=== PATIENT | male | born 1965 | race Caucasian/White ===

== ENCOUNTER 2018-10-29 06:42 | Emergency (ER) | payer BC, OTHER ==
[2018-10-29] MEDS ORDERED: Sodium Chloride 0.9% 1,000 ML IV ONE (06:52)
--- NOTE | 2018-10-29 07:14 | EDM.PDOC ---
ED HPI GENERAL MEDICAL PROBLEM - General Chief Complaint: Neuro Symptoms/Deficits Stated Complaint: STROKE Time Seen by Provider: 10/29/18 07:07 - History of Present Illness INITIAL COMMENTS - FREE TEXT/NARRATIVE: HISTORY AND PHYSICAL: History of present illness: The patient is a 53-year-old male with a history of diabetes who presents via EMS upon awakening this morning and noticing that his speech is altered and that he ate weakness in bilateral legs right greater than left. According to the history the last known well time was about 7 PM last evening but the patient says he just wasn't feeling "right" and felt somewhat ill at about 6 PM. He says he did toss and turn all night and didn't sleep well but he did not get up to go to the bathroom or get out of bed to notice any neurologic changes. Upon awakening this morning he noticed that he was very weak in his legs and his roommate noticed that he had speech issues. From this history his last known well time was 7 PM and the symptoms were noticed this morning at 6 AM. He has no history of neurologic issues and no history of trauma. He denies any complaints of pain such as headache chest pain abdominal pain and has had no shortness of breath nausea vomiting or extremity pain. He has no midline neck or back pain and says that he has been eating and drinking normally yesterday. He has no recent illnesses that he is aware of. The patient noticeably says that he feels like he is having trouble getting his words out. With these events of this morning there was no trauma. Please see below for more information after the was contacted. Review of systems: As per history of present illness and below otherwise all systems reviewed and negative. Past medical history: As per history of present illness and as reviewed below otherwise noncontributory. Surgical history: As per history of present illness and as reviewed below otherwise noncontributory. Social history: No reported history of drug or alcohol abuse. Family history: As per history of present illness and as reviewed below otherwise noncontributory. Physical exam: General: Well-developed well-nourished man who is nontoxic and vital signs are noted by me. He is able to speak and answer questions but he has difficulty forcing words out and articulating. He is cooperative and interactive and on my exam he can't move upper extremities sit himself up in bed and adjust himself and most of his weakness appears to be in his lower extremities right greater than left. HEENT: Atraumatic, normocephalic, pupils reactive, negative for conjunctival pallor or scleral icterus, mucous membranes moist, throat clear, neck supple, nontender, trachea midline. No cervical adenopathy or nuchal rigidity Lungs: Clear to auscultation, breath sounds equal bilaterally, chest nontender. Heart: S1S2, regular rate and rhythm no overt murmurs Abdomen: Soft, nondistended, nontender. Negative for masses or hepatosplenomegaly. Negative for costovertebral tenderness. Pelvis: Stable nontender. Genitourinary: Deferred. Rectal: Deferred. Extremities: Atraumatic, negative for cords or calf pain. Neurovascular unremarkable. No pedal edema or leg asymmetry Neuro: Awake, alert, oriented. Cranial nerves II through XII unremarkable with the exception of a slight facial droop on the right . Hydrogeology Professor strength is equal bilaterally on my exam and the patient can wiggle his toes bilaterally but the left is better than the right. NIHSS was initially 13, evaluation there is definite improvement of the right upper extremity. Bilateral lower extremities exhibit weakness which on the left appears to be a 2-3/5 are as on the right it is more likely 1-2/5. Tone is normal. Patient has speech that is intelligible but there is some thickening and difficulty articulating words and seems to be very forced and slurred. Back: There are no midline step-offs and she backs the thoracic or lumbar spine no posterior rib tenderness Diagnostics: EKG CT scan of the head chest x-ray CBC CMP INR UA UDS troponin TSH hemoglobin A1c Therapeutics: IV O2 monitor IV fluids aspirin This case was called as a stroke alert due to the presenting symptoms and in light of the times relate to us both by the patient and EMS the patient is not a candidate for TPA as his last known well time was 7 PM and the onset of symptoms were noticed at 6 AM upon awakening. His initial stroke scale was 13 and he is already showing some signs of improvement. Due to the patient's age and the deficit involved this patient will be transferred to [facility] in [place] as an acute stroke for more intensive care with neurology and ability for imaging with MRI. Once I obtain all testing results I will plan on this transfer and communicate those facts and information to the patient. Nursing contacted the patient's who was in [place], as he is here working in town. She said that she spoke with him at 9 PM last evening and he was slurring his speech at that time. She also relates to us that he has a history of diabetic neuropathy and has reduced sensation in his extremities which is not new and he also has a bilateral lower extremity weakness which is not new. She says that he is not always compliant with his medications for his diabetes. Patient is aware of testing results and need for transfer and he is somewhat tearful and upset about having to be transferred but understands our position and are lack of resources for him. [id number]: Case was discussed with Dr. Le at [facility] in the ER who accepts the patient for transfer. He agrees with ground transfer as a last known well time was 7 PM. He is aware that at this point the patient's stroke scale and symptoms are not completely unilateral. Impression: Acute neurologic deficits/CVA; history of insulin requiring diabetes Definitive disposition and diagnosis as appropriate pending reevaluation and review of above. - Related Data Allergies Allergy/AdvReac Type Severity Reaction Status Date / Time metformin Allergy Abdominal Verified 10/29/18 07:04 Pain Penicillins Allergy Hives Verified 10/29/18 07:04 Home Meds: Home Meds Insulin Detemir [Levemir] 60 unit SQ QPM 08/27/15 [History] Insulin Lispro [HumaLOG] See Protocol SQ ASDIRECTED PRN 08/27/15 [History] Past Medical History Cardiovascular History: Reports: CAD, High Cholesterol, Hypertension, DE, Stents Musculoskeletal History: Reports: Other (See Below) Other Musculoskeletal History: Dupuytren's contracture or palmar fibromatosis Endocrine/Metabolic History: Reports: Diabetes, Type II - Past Surgical History Cardiovascular Surgical History: Reports: Other (See Below) GI Surgical History: Reports: Other (See Below) Musculoskeletal Surgical History: Reports: Other (See Below) Social & Family History - Family History Family Medical History: Noncontributory Cardiac: Reports: CAD Oncologic: Reports: Colon, Prostate ED ROS GENERAL - Review of Systems Review Of Systems: ROS reveals no pertinent complaints other than HPI. ED EXAM, GENERAL - Physical Exam Exam: See Below (See dictation) Course - Vital Signs Last Recorded V/S: Last Vital Signs Temp 36.1 C 10/29/18 06:54 Pulse 53 L 10/29/18 06:54 Resp 16 10/29/18 06:54 BP 147/93 H 10/29/18 06:54 Pulse Ox 96 10/29/18 06:54 - Orders/Labs/Meds Orders: Active Orders 24 hr Category Date Time Status Cardiac Monitoring [RC] . DIRECTED Care 10/29/18 06:52 Active EKG Documentation Completion [RC] STAT Care 10/29/18 06:52 Active Pulse Oximetry [RC] ASDIRECTED Care 10/29/18 06:52 Active DRUG SCREEN, URINE [URCHEM] Stat Lab 10/29/18 06:53 Ordered GLYCOSYLATED HEMOGLOBIN,HGBA1C [CHEM] Stat Lab 10/29/18 06:45 Received UA RFX FILOMENA AND CULT IF INDIC [URIN] Stat Lab 10/29/18 06:52 Ordered Saline Lock Insert [OM.PC] Stat Oth 10/29/18 06:52 Ordered Labs: Laboratory Tests 10/29/18 10/29/18 10/29/18 Range/Units 06:45 06:45 06:45 WBC 6.71 (4.0-11.0) K/uL RBC 4.68 (4.50-5.90) M/uL Hgb 14.0 (13.0-17.0) g/dL Hct 41.0 (38.0-50.0) % MCV 87.6 (80.0-98.0) fL MCH 29.9 (27.0-32.0) pg MCHC 34.1 (31.0-37.0) g/dL RDW Std Deviation 45.3 (28.0-62.0) fl RDW Coeff of Alexandra 14 (11.0-15.0) % Plt Count 194 (150-400) K/uL MPV 10.30 (7.40-12.00) fL Neut % (Auto) 58.8 (48.0-80.0) % Lymph % (Auto) 30.0 (16.0-40.0) % [place] % (Auto) 7.3 (0.0-15.0) % Eos % (Auto) 3.6 (0.0-7.0) % Baso % (Auto) 0.3 (0.0-1.5) % Neut # (Auto) 4.0 (1.4-5.7) K/uL Lymph # (Auto) 2.0 (0.6-2.4) K/uL [place] # (Auto) 0.5 (0.0-0.8) K/uL Eos # (Auto) 0.2 (0.0-0.7) K/uL Baso # (Auto) 0.0 (0.0-0.1) K/uL Nucleated RBC % 0.0 /100WBC Nucleated RBCs # 0 K/uL INR 0.94 Sodium 137 (136-148) mmol/L Potassium 4.7 (3.5-5.1) mmol/L Chloride 103 (98-107) mmol/L Carbon Dioxide 25.0 (21.0-32.0) mmol/L BUN 17 (7.0-18.0) mg/dL Creatinine 1.1 (0.8-1.3) mg/dL Est Cr Clr Drug Dosing 94.25 mL/min Estimated GFR (MDRD) > 60.0 ml/min Glucose 204 H (74-106) mg/dL Calcium 9.0 (8.5-10.1) mg/dL Total Bilirubin 0.6 (0.2-1.0) mg/dL AST 14 L (15-37) IU/L ALT 21 (14-63) IU/L Alkaline Phosphatase 68 (46-116) U/L Troponin I < 0.050 (0.000-0.056) ng/mL Total Protein 7.3 (6.4-8.2) g/dL Albumin 3.8 (3.4-5.0) g/dL Globulin 3.5 (2.6-4.0) g/dL Albumin/Globulin Ratio 1.1 (0.9-1.6) TSH 3rd Generation 2.40 (0.36-3.74) uIU/mL Meds: Medications Discontinued Medications Generic Name Dose Route Start Last Admin Trade Name Kalinq PRN Reason Stop Dose Admin Aspirin 325 mg 10/29/18 07:19 10/29/18 07:28 Aspirin PO 10/29/18 07:20 325 mg ONETIME ONE Administration Sodium Chloride 1,000 mls @ 999 mls/hr 10/29/18 06:52 10/29/18 07:10 Normal Saline IV 10/29/18 07:52 999 mls/hr BOLUS ONE Administration Departure - Departure Time of Disposition: 08:00 Disposition: DC/Tfer to Acute Hospital 02 Condition: Fair Clinical Impression: Cerebrovascular accident (CVA) Qualifiers: CVA mechanism: unspecified Qualified Code(s): I63.9 - Cerebral infarction, unspecified - Discharge Information Referrals: PCP,None [Primary Care Provider] - Forms: ED Department Discharge - My Orders Last 24 Hours: My Active Orders 10/29/18 06:45 GLYCOSYLATED HEMOGLOBIN,HGBA1C [CHEM] Stat - Assessment/Plan Last 24 Hours: My Active Orders 10/29/18 06:45 GLYCOSYLATED HEMOGLOBIN,HGBA1C [CHEM] Stat
--- NOTE | 2018-10-29 07:15 | CT ---
HISTORY: Altered mental status. TECHNIQUE: CT brain without contrast. COMPARISON: None. FINDINGS: No acute intracranial hemorrhage. No extra-axial collection. No mass effect or midline shift. Ventricular system is normal in caliber morphology. Cisterns are patent. Be-white differentiation is maintained. Calvarium is intact. Mild mucosal thickening in both maxillary sinuses left greater than right. Paranasal sinuses and mastoid air cells are otherwise clear. IMPRESSION: No acute intracranial abnormality. Please note that all CT scans at this facility use dose modulation, iterative reconstruction, and/or weight-based dosing when appropriate to reduce radiation dose to as low as reasonably achievable. Dictated by Ed Bravo MD @ Oct 29 2018 7:11AM Signed by Dr. Ed Bravo @ Oct 29 2018 7:14AM
[2018-10-29] MEDS ORDERED: Aspirin 325 MG Tab PO ONE (07:19)
[2018-10-29 07:26] LABS: BLOOD UREA NITROGEN,BUN 17 mg/dL (7.0-18.0); CHLORIDE,CL 103 mmol/L (98-107); GLUCOSE RANDOM 204 mg/dL (74-106); POTASSIUM,K 4.7 mmol/L (3.5-5.1); SODIUM,NA 137 mmol/L (136-148)
--- NOTE | 2018-10-29 07:40 | CR ---
INDICATION: Altered mental status TECHNIQUE: Chest 1 view COMPARISON: None FINDINGS: Cardiovascular and mediastinum: Heart size and vasculature are normal in caliber and appearance. Lungs and pleural spaces: No pleural effusion or pneumothorax. Trace left basilar atelectasis. Bones and soft tissues: No significant findings. IMPRESSION: Trace left basilar atelectasis, otherwise unremarkable single-view chest. Dictated by Shankar Alcocer MD @ Oct 29 2018 7:38AM Signed by Dr. Shankar Alcocer @ Oct 29 2018 7:38AM
[2018-10-29 08:03] LABS: HEMOGLOBIN A1C 8.1 % (4.5-6.2)
[2018-10-29 08:11] VITALS: BP 145/84; PULSE 62
[2018-10-29] MEDS ORDERED: Sodium Chloride 0.9% 1,000 ML IV SCH (08:15)
== END 2018-10-29 09:01 ==
LOC: MW.ED 06:42
DX: I63.9 Cerebral infarction, unspecified (principal); I10 Essential (primary) hypertension; I25.2 Old myocardial infarction; E11.9 Type 2 diabetes mellitus without complications; Z79.4 Long term (current) use of insulin; Z88.0 Allergy status to penicillin; Z88.8 Allergy status to other drugs, medicaments and biological substances
CPT/HCPCS: 36415; 70450; 71045; 80053; 83036; 84443; 84484; 85025; 85610; 93005; 96360; 96361; 99285; A9270; J7040